=== PATIENT | male | born 1945 | race Caucasian/White ===

== ENCOUNTER 2022-03-04 05:50 | Day surgery (SDC) | payer MEDICARE, BC ==
[~2022-03-04] VITALS: Ht 167.6 cm; Wt 118.2 kg
[~2022-03-04 05:50] MED LIST: ALLOPURINOL300 MG PO; ASPIRIN EC81 MG PO; CARDURA8 MG PO; CARVEDILOL25 MG PO; CEPHALEXIN500 MG PO; HUMULIN 70100 UNIT/3 SUB-Q; IRON325 M1 PO; LOSARTAN POTASS25 MG PO; MECLIZINE HCL25 MG PO; METFORMIN HCL500 MG PO; VITAMIN D5000 UNIT PO; ZETIA10 MG PO
--- NOTE | 2022-03-04 06:59 | NUR ---
BP ELEVATED ON ADMIT RECHECK BP 195/98 HR 61.
--- NOTE | 2022-03-04 08:41 | NUR ---
03/04/22 0841 Dominique Woodward 0836-PATIENT ARRIVED TO PACU ON 6L MASK NONAROUSABLE ORAL AIRWAY IN PLACE RR EVEN. IVF INFUSING. SR. ABDOMEN ROUND AND SOFT. PER INGRID ROBOT OPERATOR DO NOT NEED TO RECHECK GLUCOSE LEVEL. 0838-PATIENT COUGHING OPENING EYES ORAL AIRWAY REMOVED. HOB ELEVATED ON 6L MASK RR EVEN. SR. 0840-PATIENT PASSING GAS.
--- NOTE | 2022-03-04 08:43 | NUR ---
PT ALERT, ORIENTED AND SUPPORTED BY HIS JAE. PT HAS HAD PREVIOUS SCOPES, BUT UP MOST OF THE NIGHT THIS TIME. PT SEEMS INFORMED, JAE IS GOING TO WAIT FOR DC. PT REQUESTED PRAYER, WILL FOLLOW
--- NOTE | 2022-03-05 05:58 | OR ---
[facility] [address], [place] [address] Signed DATE OF OPERATION: 03/04/2022 SURGEON: Arnaldo Ferraro MD PREOPERATIVE DIAGNOSES: 1. Personal history of colonic polyps, 2016. 2. Diverticulosis. POSTOPERATIVE DIAGNOSES: 1. Moderate sigmoid diverticulosis. 2. A 5 mm polyp at 95 cm. 3. A 4 mm polyp at 70 cm. PROCEDURE: Colonoscopy with hot biopsy. ESTIMATED BLOOD LOSS: None. INDICATIONS: Morelia is a 76-year-old obese diabetic gentleman, asked to see me for followup colonoscopy. He thinks Dr. Curry helped him with a colonoscopy around 2005. He thinks maybe polyps removed at that time. I helped him with a colonoscopy in 2016. He had rather significant polyps removed at that time. He had a tubulovillous adenomatous polyp, a villoglandular adenomatous polyp, several tubular adenomatous polyps and several hyperplastic polyps removed. He also has diverticulosis. We asked him to follow up in 3 to 5 years. He does complain of postoperative nausea and vomiting after procedures. He has also had radiation for his prostate cancer. He has a very full round face, heavy chest and abdomen that all contribute to sleep apnea. We had to use a nasal trumpet to maintain his airway back in 2016 while on versed and fentanyl. He clearly qualifies for monitored anesthesia care with propofol. In fact, that was a polanco decision today. He has no family history of colon cancer or polyps. He said he had some bleeding two weeks after the procedure back in 2016 when he went down to [place], [place] to help his son move. He said he ended up in the hospital in [place]. He said that is caused him concern and he was a little worried about a followup colonoscopy. We spent an enormous amount of time reviewing all this together including other options including a barium enema and/or various stool samples. He understands I cannot guarantee he will not have another post polypectomy bleed. He is going to hold the aspirin one week prior to the procedure and he said up to four weeks after the procedure. In the office, I had given him a pamphlet on colonoscopy. We had reviewed Electronically Signed By: ARNALDO FERRARO MD 03/05/22 0558 PATIENT NAME: MORELIA AVILES JR OPERATIVE REPORT DATE OF : 49 REPORT #: [id number] PHYSICIAN: ARNALDO FERRARO MD PCP: PEDRO STILES MD REPORT IS CONFIDENTIAL AND NOT TO BE RELEASED WITHOUT AUTHORIZATION [facility] [address] [place] [id number] Signed that test together. Again, he understands there is risk including, but not limited to gas, bloating, crampy abdominal pain, bleeding, perforation, requiring surgery, and missed diagnosis. He also understands the need for the monitored anesthesia care. He had expressed understanding and wished to proceed. PROCEDURE NOTE: Morelia was taken into our endoscopy suite and placed in the left lateral decubitus position. He was given monitored anesthesia care with propofol per our nurse underwriting director. A digital rectal exam was performed and essentially there was no prostate gland palpable. He has good sphincter tone. No external hemorrhoids. The adult colonoscope had been introduced and advanced all around into the cecum under direct visualization of camera without difficulty. He did have some large balls of stool. He said he gets nauseated with bowel preps and therefore, he should use a longer bowel prep in the future. Fortunately, once we got past the large balls of stool, the rest of the colon was quite clean. We could easily see the appendiceal orifice and the ileocecal valve. The scope had been slowly withdrawn. We took pictures throughout for photodocumentation. The two polyps mentioned above were easily removed with the help of hot biopsy forceps. They were quite small and we did not place any clips. He does have moderate sigmoid diverticulosis. They are moderate in size, moderate in number, and scattered about. Once in the rectum, we made multiple attempts to retroflex the scope without success. His rectum seems to be a bit narrow particular for man. He does have a little bit of irritation from the radiation as well. After this, the gas was suctioned out and the colonoscope removed. Morelia tolerated the procedure quite well. RECOMMENDATIONS: I will see Morelia back in my office in 7 to 14 days to review his results. We also noticed that he has had a significant increase in his BUN and creatinine and his potassium levels. He needs to follow this up with his primary care provider. Arnaldo Ferraro MD ALB/MODL /[id number] cc: Arnaldo Ferraro MD Electronically Signed By: ARNALDO FERRARO MD 03/05/22 0558 PATIENT NAME: MORELIA AVILES JR OPERATIVE REPORT DATE OF : 49 REPORT #: [id number] PHYSICIAN: ARNALDO FERRARO MD PCP: PEDRO STILES MD REPORT IS CONFIDENTIAL AND NOT TO BE RELEASED WITHOUT AUTHORIZATION [facility] [address] [facility] [place], [place] [address] Signed Pedro Stiles MD Copies: ARNALDO FERRARO MD, KEVIN R MD ~ Electronically Signed By: ARNALDO FERRARO MD 03/05/22 0558 PATIENT NAME: TRACI FIGUEROAMORELIA JESUS OPERATIVE REPORT DATE OF : 49 REPORT #: [id number] PHYSICIAN: ARNALDO FERRARO MD PCP: PEDRO STILES MD REPORT IS CONFIDENTIAL AND NOT TO BE RELEASED WITHOUT AUTHORIZATION
== END 2022-03-04 09:20 | disposition home or self-care (01) ==
LOC: DS 05:50 → OPS 05:50 → DS 07:00 → OPS 09:20
PROVIDERS: ATTEND Colon & Rectal Surgery
PROC: 0DBE8ZX Excision of Large Intestine, Via Natural or Artificial Opening Endoscopic, Diagnostic (ICD-10-PCS; principal; 2022-03-04 07:00)
DX: K63.5 Polyp of colon (principal); K57.30 Diverticulosis of large intestine without perforation or abscess without bleeding; E11.9 Type 2 diabetes mellitus without complications; E66.9 Obesity, unspecified; I10 Essential (primary) hypertension; E78.00 Pure hypercholesterolemia, unspecified; G47.33 Obstructive sleep apnea (adult) (pediatric); Z79.4 Long term (current) use of insulin; Z68.41 Body mass index [BMI] 40.0-44.9, adult; Z79.82 Long term (current) use of aspirin; Z88.0 Allergy status to penicillin; Z88.8 Allergy status to other drugs, medicaments and biological substances; Z87.19 Personal history of other diseases of the digestive system
CPT/HCPCS: 00811; 36415; 80048; 88305; J2704; J7121